=== PATIENT | male | born 1945 | race Caucasian/White ===

== ENCOUNTER 2017-03-21 14:04 | Emergency (ER) | payer OTHER, BC ==
[2017-03-21 14:20] VITALS: BMI 29.4
--- NOTE | 2017-03-21 14:40 | PDOC ---
History of Present Illness - General Chief Complaint: Pain Stated Complaint: ABDOMINAL PAIN Time Seen by Provider: 03/21/17 14:20 - History of Present Illness Initial Comments: 03/21/17 14:21 Mr. Escoto is a 71 yo male with a significant past medical history of BPH, Parkinson's, and spinal stenosis who presents to the emergency department after he "felt like he was going to burst" yesterday while attempting to urinate. He says that he is normally able to urinate fine but that lately he has been experiencing increased difficulty. He does not experience pain but says that it is uncomfortable. Also he reports that he has not had a bowel movement in a week and suspects this may be the cause of his symptoms. The patient denies chest pain, shortness of breath, headache and dizziness. Denies fever, chills, nausea, vomit, and diarrhea. Denies dysuria, frequency, urgency and hematuria. Allergies: KDA Past surgical history: Stent placement and cataracts Social history: Approximate 25 year pack history. Denies any current tobacco use. Occasional EtOH. Neurologist: Dr. Reis Past History - Past Medical History Allergies/Adverse Reactions: Allergies Allergy/AdvReac Type Severity Reaction Status Date / Time No Known Allergies Allergy Verified 03/21/17 14:19 Home Medications: Ambulatory Orders Aspirin [ASA -] 81 mg PO DAILY 08/04/16 Atorvastatin Ca [Lipitor] 80 mg PO HS 08/04/16 Carbidopa/Levodopa 25/100 [Sinemet 25/100 -] 1.5 each PO QID 08/04/16 Cyanocobalamin [Vitamin B12 -] 500 mcg PO DAILY 08/04/16 Ergocalciferol (Vitamin D2) [Vitamin D2] 1,000 unit PO DAILY 08/04/16 Finasteride 5 mg PO DAILY 08/04/16 Fluoxetine HCl 20 mg PO DAILY 08/04/16 Hydrochlorothiazide [Hctz -] 25 mg PO DAILY 08/04/16 Levomefolate Calcium [l-Methylfolate Calcium] 15 mg PO DAILY 08/04/16 Levothyroxine [Synthroid -] 75 mcg PO DAILY 08/04/16 Losartan Potassium 100 mg PO DAILY 08/04/16 Oxycodone HCl/Acetaminophen [Percocet 10-325 mg Tablet] 1 each PO HS PRN Oxycodone Sr [Oxycontin] 10 mg PO BID 08/04/16 Ropinirole HCl 0.25 mg PO BID 08/04/16 Sulfamethoxazole/Trimethoprim [Bactrim Ds -] 1 tab PO BID 08/04/16 Ubidecarenone [Coq-10] 200 mg PO DAILY 08/04/16 Docusate Sodium [Colace -] 100 mg PO DAILY #7 capsule 03/21/17 Docusate Sodium [Colace -] 100 mg PO DAILY #7 capsule 03/21/17 Sennosides [Senna] 8.6 mg PO DAILY #7 tablet 03/21/17 Sennosides/Docusate Sodium [Senna Laxative Tablet] 1 each PO DAILY #7 tablet 01/30 Cardiac Disorders: Yes (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.) GI Disorders: Yes (GERD) Disorders: Yes (URINARY FRQUENCY) HTN: Yes Hypercholesterolemia: Yes Psychiatric Problems: Yes (DEPRESSION,INSOMNIA) Other medical history: Parkinson - Surgical History Cardiac Surgery: Yes (cardiac stents) - Psycho/Social/Smoking Cessation Hx Anxiety: No Suicidal Ideation: No Smoking History: Never smoked Have you smoked in the past 12 months: No If you are a former smoker, when did you quit?: 23 years ago Information on smoking cessation initiated: No Hx Alcohol Use: No Drug/Substance Use Hx: No Substance Use Type: None Review of Systems - Review of Systems Comments:: 03/21/17 14:21 GENERAL/CONSTITUTIONAL: No fever or chills. No weakness. HEAD, EYES, EARS, NOSE AND THROAT: No change in vision. No ear pain or discharge. No sore throat. CARDIOVASCULAR: No chest pain or shortness of breath RESPIRATORY: No cough, wheezing, or hemoptysis. GASTROINTESTINAL: +1 week of constipation. No nausea, vomiting, or diarrhea. GENITOURINARY: +Difficulty urinating, has to strain. No dysuria. MUSCULOSKELETAL: No joint or muscle swelling or pain. No neck or back pain. SKIN: No rash NEUROLOGIC: No headache, vertigo, loss of consciousness, or change in strength/ sensation. ENDOCRINE: No increased thirst. No abnormal weight change HEMATOLOGIC/LYMPHATIC: No anemia, easy bleeding, or history of blood clots. ALLERGIC/IMMUNOLOGIC: No hives or skin allergy. *Physical Exam - Vital Signs Last Vital Signs Temp Pulse Resp BP Pulse Ox 98.0 F 90 12 116/87 100 03/21/17 14:13 03/21/17 14:13 03/21/17 14:13 03/21/17 14:13 03/21/17 14:13 - Physical Exam Comments: 03/21/17 14:21 GENERAL: Awake, alert, and fully oriented, in no acute distress HEAD: No signs of trauma, normocephalic, atraumatic EYES: PERRLA, EOMI, sclera anicteric, conjunctiva clear ENT: Auricles normal inspection, hearing grossly normal, nares patent, oropharynx clear without exudates. Moist mucosa NECK: Normal ROM, supple, no lymphadenopathy, JVD, or masses LUNGS: +Diffuse wheezing appreciated throughout lung yo. No distress, speaks full sentences. HEART: Regular rate and rhythm, normal S1 and S2, no murmurs, rubs or gallops, peripheral pulses normal and equal bilaterally. ABDOMEN: +Uncomfortable with palpation. Soft, nontender, normoactive bowel sounds. No guarding, no rebound. Lipoma noted approximately 1 inch above the umbilicus. EXTREMITIES: Normal inspection, Normal range of motion, no edema. No clubbing or cyanosis. NEUROLOGICAL: +Tremor consistent with parkinson's appreciated. Cranial nerves II through XII grossly intact. Normal speech. SKIN: Warm, Dry, normal turgor, no rashes or lesions noted. ED Treatment Course - LABORATORY CBC & Chemistry Diagram: 03/21/17 15:06 03/21/17 15:06 Medical Decision Making - Medical Decision Making 03/21/17 15:36 Mr. Escoto presents requesting relief from his constipation which he believes is the cause of his urinary retention. UA reveals no UTI. KUB ordered to confirm no cause of constipation other than opioid use. CXR ordered as lung yo diffusely wheezy and pt has smoking history as well as prior exposure to asbestos. Therapeutic Mag Citrate + Enema ordered for constipation relief. 03/21/17 16:49 After mag citrate + enema patient experienced a large BM. D/Cing to home with senna / colace Rx for 1 week and instructions to f/u with PCP *DC/Admit/Observation/Transfer Diagnosis at time of Disposition: Constipation Qualifiers: Constipation type: drug induced constipation Qualified Code(s): K59.03 - Drug induced constipation - Discharge Dispostion Disposition: HOME - Prescriptions Prescriptions: Docusate Sodium [Colace -] 100 mg PO DAILY #7 capsule Docusate Sodium [Colace -] 100 mg PO DAILY #7 capsule Sennosides [Senna] 8.6 mg PO DAILY #7 tablet Sennosides/Docusate Sodium [Senna Laxative Tablet] 1 each PO DAILY #7 tablet - Patient Instructions Printed Discharge Instructions: DI for Constipation Additional Instructions: Please return if any increase in pain, fever, or other concerning symptoms. - Attestations Physician Attestion: 03/21/17 15:40 I, Dr. Alber Huerta, attest that this document has been prepared under my direction and personally reviewed by me in its entirety. I further attest, that it accurately reflects all work, treatment, procedures and medical decision -making performed by me.
[2017-03-21] MEDS ORDERED: MAGNESIUM CITRATE 300 ML BOTTLE PO ONE (14:51)
[2017-03-21 15:17] LABS: BASOPHIL 0.6 % (0-2.0); EOSINOPHIL 0.6 % (0-4.5); MCHC 33.4 g/dl (32.0-35.9); MEAN CELL VOLUME 89.6 fl (80-96); MEAN PLT VOLUME 7.3 fl (7.5-11.1); NEUTROPHILS 77.8 % (42.8-82.8); PLATELET COUNT 227 K/MM3 (134-434); WHITE BLOOD COUNT 7.7 K/mm3 (4.0-10.0)
[2017-03-21 15:18] LABS: URINE APPEARANCE CLEAR; URINE BILIRUBIN NEGATIVE (NEGATIVE); URINE BLOOD NEGATIVE (NEGATIVE); URINE COLOR YELLOW; URINE GLUCOSE (UA) NEGATIVE (NEGATIVE); URINE KETONE TRACE (NEGATIVE); URINE LEUK ESTERASE NEGATIVE (NEGATIVE); URINE NITRITE NEGATIVE (NEGATIVE); URINE PROTEIN NEGATIVE (NEGATIVE); URINE UROBILINOGEN NEGATIVE mg/dL (0.2-1.0)
--- NOTE | 2017-03-21 15:25 | PDOC ---
Attending Attestation - Resident Resident Name: Alber Huerta - ED Attending Attestation I have performed the following: I have examined & evaluated the patient, The case was reviewed & discussed with the resident, I agree w/resident's findings & plan, Exceptions are as noted - HPI HPI: 03/21/17 15:19 "The patient is a 71 year old male, with a significant past medical history of Parkinson's disease, HLD, BPH, and HTN, who presents to the emergency department with constipation and difficulty urinating for about a week. The patient reports the last time he passed stool was about a week ago, though he has been able to pass gas since. He also notes having lower abdominal cramps that are intermittent. He denies any recent fevers, chills, headache or dizziness. He denies any incontinence. Pt states that for the past few days he has also felt the urge to urinate more frequently and feels as though he is unable to void completely. He takes narcotic pain meds for his spinal stenosis and has had constipation issues for the past month. He denies nausea, vomiting, or diarrhea. He denies any chest pain or shortness of breath. He denies any dysuria or hematuria. Allergies: NKA Past surgical history: Cataracts and stent x1 Social History: Nonsmoker. Denies EtOH use and recreational drug use. " - Physicial Exam PE: 03/21/17 15:22 " GENERAL: Awake, alert, and fully oriented, in no acute distress HEAD: No signs of trauma EYES: PERRLA, EOMI, sclera anicteric, conjunctiva clear ENT: Auricles normal inspection, hearing grossly normal, nares patent, oropharynx clear without exudates. Moist mucosa NECK: Normal ROM, supple, no lymphadenopathy, JVD, or masses LUNGS: Breath sounds equal, clear to auscultation bilaterally. No wheezes, and no crackles HEART: Regular rate and rhythm, normal S1 and S2, no murmurs, rubs or gallops ABDOMEN: Soft, nontender, normoactive bowel sounds. No guarding, no rebound. No masses EXTREMITIES: Normal range of motion, no edema. No clubbing or cyanosis. No cords, erythema, or tenderness NEUROLOGICAL: Cranial nerves II through XII grossly intact. Normal speech, normal gait SKIN: Warm, Dry, normal turgor, no rashes or lesions noted. " - Medical Decision Making 03/21/17 15:22 71 M with constipation and urinary urgency for 1 week. Constipation likely opioid related. Low suspicion for mechanical obstruction, as pt has no surgical history and no palpable hernias on exam. Pt's abdomen is soft and non-tender. Pt 's urinary urgency is likely also related to constipation and large stool volume. Bedside US reveals post-void residual of about 30cc. - AXR to r/o obstruction - Labs - Mag citrate + fleet enema - Reassess 03/21/17 17:08 Pt with large BM after enema. Now reports resolution of discomfort. Abdominal exam completely nontender. Stable for DC. Will send scripts for stool softeners.
[2017-03-21 15:45] LABS: ALK PHOS 85 U/L (45-117); ANION GAP 5 (8-16); BILIRUBIN,TOTAL 0.5 mg/dL (0.2-1.0); CALCIUM 9.3 mg/dL (8.5-10.1); CO2 30 mmol/L (21-32); CREATININE 1.1 mg/dL (0.7-1.3); GLUCOSE,RANDOM 133 mg/dL (74-106); SGOT/AST 23 U/L (15-37); SGPT/ALT 16 U/L (12-78); TOT PROT 7.3 g/dl (6.4-8.2)
[2017-03-21 17:24] VITALS: BP 136/79; PULSE 80; TEMP 99
== END 2017-03-21 17:24 | disposition home or self-care (01) ==
LOC: JER 14:04
DX: K59.03 Drug induced constipation (principal); K21.9 Gastro-esophageal reflux disease without esophagitis; F32.9 Major depressive disorder, single episode, unspecified; G20 Parkinson's disease; Z87.891 Personal history of nicotine dependence; Z95.5 Presence of coronary angioplasty implant and graft
CPT/HCPCS: 36415; 71020-TC; 74000-TC; 80053; 81003; 85025; 99283-25